=== PATIENT | male | born 1935 | race Caucasian/White ===

== ENCOUNTER 2018-08-07 13:59 | Inpatient (IN) | payer MEDICARE ==
[2018-08-07] MEDS ORDERED: Morphine 4 MG/ML VIAL ONE (14:52)
[2018-08-07] MEDS ORDERED: Ondansetron PF 4 MG/2 ML Vial ONE (14:53)
[2018-08-07 15:04] LABS: #Basophils 0.1 thou/uL (0.0-0.2); #Eosinphils 0.1 thou/uL (0.0-0.7); #Monocytes 0.4 thou/uL (0.11-0.59); #Neutrophils 4.9 thou/uL (1.40-6.50); %Basophils 1.1 % (0.0-1.0); %Eosinophils 2.1 % (0.0-10.0); %Lymphocytes 15.7 % (21.0-51.0); %Monocytes 5.5 % (0.0-10.0); %Neutrophils 75.6 % (42.0-75.0); Hemoglobin 15.8 g/dL (14.0-18.0); Mean Corpuscular HGB CONC 32.2 g/dL (32.0-36.0); Mean Corpuscular Hemoglobin 33.3 pg (27.0-31.0); Mean Platelet Volume 8.1 fL (7.4-10.4); Platelet Count 153 thou/uL (130-400); RBC Distribution Width 12.6 % (11.5-14.5); Red Blood Cell (RBC) Count 4.74 mill/uL (4.70-6.10); White Blood Cell (WBC) Count 6.4 thou/uL (4.8-10.8)
--- NOTE | 2018-08-07 15:07 | RAD ---
AP VIEW PELVIS: Date: 08/07/18 INDICATION: History of fall. COMPARISON: None. FINDINGS: There is a comminuted, mildly angulated right intertrochanteric hip fracture. There is diffuse osteop enia. No additional fracture is evident. IMPRESSION: Comminuted right intertrochanteric hip fracture. POS: [facility]
--- NOTE | 2018-08-07 15:08 | RAD ---
RIGHT HIP 2 VIEWS: Date: 08/07/18 INDICATION: History of fall with right hip pain. COMPARISON: None. FINDINGS: There is a comminuted, mildly displaced right hip intertrochanteric fracture. No additional fracture is grossly evident. IMPRESSION: Right hip intertrochanteric fracture. POS: [facility]
[2018-08-07 15:10] LABS: INR-International Normal Ratio 1.2; PTT 31.8 SEC (22.9-36.1); Prothrombin Time 14.9 SEC (12.0-14.7)
[2018-08-07 15:35] LABS: ALT (SGPT) 19 U/L (8-55); AST (SGOT) 22 U/L (5-34); Albumin 3.7 g/dL (3.4-4.8); Alkaline Phosphatase 86 U/L (40-150); Anion Gap 13 mmol/L (10-20); BUN (Urea Nitrogen) 21 mg/dL (8.4-25.7); Bilirubin, Total 0.9 mg/dL (0.2-1.2); CK (CPK) 106 U/L (30-200); Calc. Creatinine Clearance 0 mL/min (70-130); Calcium 9.3 mg/dL (7.8-10.44); Carbon Dioxide 27 mmol/L (23-31); Chloride 106 mmol/L (98-107); Estimated GFR-MDRD 55; Globulin 2.6 g/dL (2.4-3.5); Glucose 220 mg/dL (83-110); Lipase 11 U/L (8-78); Potassium 4.7 mmol/L (3.5-5.1); Protein, Total 6.3 g/dL (5.8-8.1); Sodium 141 mmol/L (136-145)
[2018-08-07] MEDS ORDERED: Dextrose 5% in Water 1,000 ML IV PRN (15:45)
[2018-08-07] MEDS ORDERED: hydrALAZINE 20 MG/ML VIAL SLOW IVP PRN (15:45)
[2018-08-07] MEDS ORDERED: Ondansetron ODT 4 MG TAB PO PRN (15:45)
[2018-08-07] MEDS ORDERED: Ondansetron PF 4 MG/2 ML Vial IVP PRN (15:45)
[2018-08-07] MEDS ORDERED: Dextrose 50% Abboject 50 ML SYRINGE SLOW IVP PRN (15:45)
--- NOTE | 2018-08-07 15:57 | RAD ---
CHEST 1 VIEW PORTABLE: Date: 08/07/18 HISTORY: Preoperative evaluation. COMPARISON: 06/29/16. FINDINGS: Minimal stable opacity changes overlying the right cardiophrenic region when compared to prior exam. No confluent pneumonia, overt edema, pleural effusion, or other acute process. IMPRESSION: No acute intrathoracic disease. POS: [facility]
--- NOTE | 2018-08-07 16:34 | RAD ---
3 VIEWS RIGHT WRIST: Date: 08/07/18 CLINICAL HISTORY: Pain. 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 Osseou s demineralization is present. Chondrocalcinosis and vascular calcification present. There is soft ti ssue prominence. IMPRESSION: Degenerative changes and soft tissue prominence of the right wrist. A discrete fracture is not visual ized. If there are persistent symptoms subsequent to conservative management, short-term follow-up in 7-10 days would be indicated to exclude an occult injury. POS: [facility]
[2018-08-07] MEDS: traMADol HCl 50 MG TAB PO SCH ×2 (17:21→21:16)
[2018-08-07] MEDS: Acetaminophen 500 MG TAB PO SCH ×2 (17:21→21:17)
[2018-08-07 18:39] VITALS: BMI 27.0
[2018-08-07] MEDS: Senokot S 8.6-50 MG TAB PO SCH (20:37)
[2018-08-07] MEDS: Famotidine 20 MG TAB PO SCH (20:37)
[2018-08-07] MEDS: Gabapentin 300 MG CAP PO SCH (20:37)
[2018-08-07] MEDS: Insulin Regular 300 UNITS/3 ML VIAL SC PRN (21:25)
--- NOTE | 2018-08-07 22:36 | CON ---
DATE OF CONSULTATION: CHIEF COMPLAINT: Right hip pain. HISTORY OF PRESENT ILLNESS: Mr. Mtz is an 83-year-old male who was out shopping for a car today. He lost his balance and fell in the car lot. He was unable to ambulate. He had immediate pain. He was taken to the emergency department by EMS. He was found to have a right subtrochanteric femur fracture. Orthopedics was consulted for this injury. The patient has been in good health recently. He is a diabetic with an insulin pump. Otherwise, he has had no active medical problems recently, he reports. He ambulates with no assistive device. He helps care for his who has a knee surgery planned in the next month. PAST SURGICAL HISTORY: Previous cardiac catheterization. PAST MEDICAL HISTORY: Diabetes, hyperlipidemia, and hypertension. SOCIAL HISTORY: The patient denies tobacco, alcohol, or drug use. FAMILY MEDICAL HISTORY: Alzheimer's and previous cancer. REVIEW OF SYSTEMS: Positive for right thigh pain. Otherwise, negative 10-point review of systems. PHYSICAL EXAMINATION: VITAL SIGNS: Stable. The patient is normotensive, 98% on room air, respiratory rate of 16. GENERAL: He is lying supine. He is alert and oriented, no apparent distress. RESPIRATORY: Breathing comfortably. ABDOMEN: Soft, nontender, nondistended. MUSCULOSKELETAL: The patient's right lower extremity has external rotation. He is able to flex and extend the foot and ankle. He has palpable dorsalis pedis pulses. Sensation is intact distally. No laceration. Upper extremities are significant for a small effusion of the wrist and a laceration of the right elbow. IMAGES: X-rays of the right hip demonstrate a subtrochanteric femur fracture with varus alignment and displacement. IMPRESSION: Right subtrochanteric femur fracture in an elderly male. PLAN: At this point, the patient will require surgical intervention. I will plan for intramedullary nail placement of the right femur to restore alignment, promote healing, and promote early mobilization. He is not currently n.p.o., so we will plan for this tomorrow morning. He is aware of risks and benefits and wants to proceed. He will have preoperative antibiotics and appropriate DVT prophylaxis. Job ID: [id number]
--- NOTE | 2018-08-07 23:18 | HP ---
CONSULTS: Orthopedic surgery, Dr. Schmidt. HISTORY OF PRESENT ILLNESS: This is an 83-year-old gentleman, who was at a car dealership getting his vehicle inspected when he tripped and fell, landing on his right hip. The patient denies any loss of consciousness. The patient denies any chest pain, shortness of breath, or dizziness before falling. The patient also denies hitting his head. Reports that his main impact was his right wrist and hip. The patient does have an abrasion to the right wrist with full range of motion and reports mild pain. No obvious deformity noted. The patient does have abrasion to the right knee. Denies any pain. The patient reports pain to right hip area. The patient last ate pretzels at 1:30 this afternoon. PAST MEDICAL HISTORY: Neuropathy, insulin-dependent diabetes, hyperlipidemia, hypertension, atrial fibrillation. PAST SURGICAL HISTORY: Patient denies. SOCIAL HISTORY: Patient and his live at [facility], the patient takes care of his . Denies any drug use. Denies any alcohol use. Denies any smoking history. ALLERGIES: PENICILLIN. CURRENT MEDICATIONS: 1. Gabapentin. 2. Eliquis for atrial fibrillation. 3. Insulin pump. 4. Humalog. REVIEW OF SYSTEMS: A 10-point review of systems is negative unless otherwise stated in the above HPI. PHYSICAL EXAMINATION: VITAL SIGNS: Blood pressure 154/91, pulse 54, respirations 18, temperature 98.3 , SpO2 99% on room air. GENERAL: The patient is awake and alert, lying supine in bed. The patient is hard of hearing, and states that his hearing aid is currently not functioning. The patient with mild anxiety due to the fact that he is the sole care provider for his and he does not have anyone else who can take care of her. HEENT: Normocephalic and atraumatic. Pupils are equal, round, and reactive. RESPIRATIONS: Bilateral breath sounds clear to auscultation. Respirations even and unlabored. No respiratory distress. HEART: Regular rate and rhythm, slightly bradycardic. No murmurs noted. No pedal edema. ABDOMEN: Soft, nontender, and nondistended. The patient with insulin pump in place. EXTREMITIES: Neurovascularly intact x4. Distal pulses 2+ x4. The patient with right lower extremity external rotation and shortening. The patient with abrasion to right knee. The patient also with abrasion to right elbow and right wrist. No obvious deformity. NEUROLOGIC: The patient is awake, alert, and oriented x4. GCS is 15. LABORATORY DATA: WBC 6.4, RBC 4.74, hemoglobin 15.8, hematocrit 49.0, platelets 153. PT 14.9, INR 1.2, PTT 31.8. Sodium 141, potassium 4.7, chloride 106, carbon dioxide 27, anion gap 13, BUN 21, creatinine 1.25, estimated GFR 55, glucose 220 , calcium 9.3. AST 22, ALT 19, alkaline phos 86. CK 106. BNP 334.7. DIAGNOSTICS: Right hip x-ray. Impression: Right hip intertrochanteric fracture. Pelvis x-ray, comminuted right intertrochanteric hip fracture. Chest x-ray, good lung margins, no acute intrathoracic process. Right wrist x-ray, no obvious fracture. IMPRESSION: 1. Status post mechanical fall. 2. Right hip intertrochanteric fracture. 3. Abrasions. 4. History of insulin-dependent diabetes. 5. History of hypertension. 6. History of atrial fibrillation. 7. History of neuropathy. PLAN: We will admit the patient to ortho floor. Orthopedics will take the patient to the OR tomorrow morning. We will discontinue the patient's insulin pump and place on a sliding scale. We will control patient's pain regimen. We will hold patient's Eliquis. We will place the patient n.p.o. after midnight. The patient was seen and evaluated with Dr. Gonzalez. Job ID: [id number] MTDD
[2018-08-08] MEDS: Sodium Chloride 0.9% 1,000 ML IV SCH ×2 (00:18→15:42)
[2018-08-08] MEDS: Acetaminophen 500 MG TAB PO SCH ×4 (03:54→22:19)
[2018-08-08] MEDS: traMADol HCl 50 MG TAB PO SCH ×4 (03:55→17:14)
[2018-08-08 05:30] LABS: #Lymphocytes 1.1 thou/uL (1.20-3.40); #Monocytes 0.7 thou/uL (0.11-0.59); #Neutrophils 6.4 thou/uL (1.40-6.50); %Basophils 0.2 % (0.0-1.0); %Eosinophils 0.6 % (0.0-10.0); %Lymphocytes 13.4 % (21.0-51.0); %Monocytes 8.3 % (0.0-10.0); %Neutrophils 77.5 % (42.0-75.0); Hemoglobin 13.9 g/dL (14.0-18.0); Mean Corpuscular HGB CONC 32.8 g/dL (32.0-36.0); Mean Corpuscular Hemoglobin 33.9 pg (27.0-31.0); Platelet Count 152 thou/uL (130-400); RBC Distribution Width 12.3 % (11.5-14.5); Red Blood Cell (RBC) Count 4.09 mill/uL (4.70-6.10); White Blood Cell (WBC) Count 8.3 thou/uL (4.8-10.8)
[2018-08-08 05:49] LABS: Phosphorus 3.3 mg/dL (2.3-4.7)
[2018-08-08 05:52] LABS: ALT (SGPT) 14 U/L (8-55); AST (SGOT) 16 U/L (5-34); Albumin 3.4 g/dL (3.4-4.8); Alkaline Phosphatase 82 U/L (40-150); Anion Gap 10 mmol/L (10-20); BUN (Urea Nitrogen) 20 mg/dL (8.4-25.7); Bilirubin, Total 1.6 mg/dL (0.2-1.2); Calc. Creatinine Clearance 66 mL/min (70-130); Calcium 9.1 mg/dL (7.8-10.44); Carbon Dioxide 29 mmol/L (23-31); Chloride 106 mmol/L (98-107); Estimated GFR-MDRD 66; Globulin 2.2 g/dL (2.4-3.5); Glucose 213 mg/dL (83-110); Magnesium 1.7 mg/dL (1.6-2.6); Potassium 4.8 mmol/L (3.5-5.1); Protein, Total 5.6 g/dL (5.8-8.1); Sodium 140 mmol/L (136-145)
[2018-08-08] MEDS ORDERED: Magnesium 2 GM/50 ML 2 GM in Premix Bag 1 BAG IVPB SCH (07:00)
[2018-08-08] MEDS: Famotidine 20 MG TAB PO SCH ×2 (08:20→22:19)
[2018-08-08] MEDS: Gabapentin 300 MG CAP PO SCH ×2 (08:21→22:19)
[2018-08-08] MEDS ORDERED: Prevnar 13-Val Conj/PF 0.5 ML SYRINGE IM ONE (09:00)
[2018-08-08] MEDS ORDERED: Loteprednol Etabonate 0.5% Ophth Suspension 5 ml Bottle EA EYE PRN (09:59)
[2018-08-08] MEDS ORDERED: Artificial Tear Sol 15 ML BOT EA EYE PRN (09:59)
--- NOTE | 2018-08-08 10:21 | PRG ---
DATE OF SERVICE: 08/08/2018 SUBJECTIVE: The patient was seen this morning lying in bed with no signs of acute distress. He reported he slept well overnight and is n.p.o. for the OR this morning with Dr. Schmidt, Orthopedic Surgery. He did complain of some dryness in his mouth and would like to drink water, but otherwise denies nausea, vomiting, and diarrhea. Reports pain is localized to his right lower extremity at the site of the fracture and pain only gets worse whenever he moves. He has neuropathy at baseline, but reports numbness and tingling is not increased since his accident. OBJECTIVE: VITAL SIGNS: Temperature 98.1, pulse 66, respirations 16, oxygen saturation 98% on room air, blood pressure 119/73. GENERAL: Well-appearing male, sitting up, lying in bed with no signs of acute distress. CARDIAC: Regular rate and rhythm. No murmurs, gallops, or rubs. PULMONARY: Equal chest rise and fall. Clear breath sounds bilaterally. No signs of acute distress. GI: Abdomen is soft, nontender, nondistended. EXTREMITIES: 2+ pulses in all extremities. No significant swelling noted. Gross motor and sensation are intact. LABORATORY FINDINGS: White count 8.3, hemoglobin 13.9, hematocrit 42.3, platelets 152. Sodium 140, potassium 4.8, chloride 106, carbon dioxide 29, BUN 20, creatinine 1.07, glucose 213, phos 3.3, magnesium 1.7. DIAGNOSTIC FINDINGS: There are no new diagnostic findings to report. ASSESSMENT: 1. Status post mechanical fall from standing. 2. Right intertrochanteric femur fracture. 3. History of hypertension, hyperlipidemia, insulin-dependent diabetes, atrial fibrillation, and peripheral neuropathy. PLAN: The patient is to go to the OR today with Dr. Schmidt of Orthopedic Surgery. He will be n.p.o. until postop, where he will receive a diabetic diet. We will continue normal saline at 100 an hour until he is taking an adequate diet, Pepcid for stress, also we will hold DVT prophylaxis until postop. We will continue to hold home medications except for home gabapentin and we will reassess tomorrow to start home medications as clinically indicated. We will continue current pain regimen. PT and OT to see the patient postoperatively. The patient will likely need placement in acute rehab and he is amendable to that. Job ID: [id number]
[2018-08-08] MEDS ORDERED: Clindamycin/D5W 900 MG in Premix Bag 1 BAG IVPB SCH (10:30)
[2018-08-08] MEDS ORDERED: Clindamycin/D5W 900 mg/50 ml Premix Bag ONE (10:51)
[2018-08-08] MEDS ORDERED: Insulin Regular 300 UNITS/3 ML VIAL ONE (11:07)
[2018-08-08] MEDS ORDERED: Dexamethasone 20 MG/5 ML VIAL ONE (12:12)
[2018-08-08] MEDS ORDERED: ePHEDrine 50 MG/ML VIAL ONE (12:12)
[2018-08-08] MEDS ORDERED: PROPOFOL 200 MG/20 ML VIAL ONE (12:12)
[2018-08-08] MEDS ORDERED: Ondansetron PF 4 MG/2 ML Vial ONE (12:12)
[2018-08-08] MEDS ORDERED: PHENYLEPHRINE-NS 100 MCG/ML 10 ML SYRINGE ONE (12:12)
[2018-08-08] MEDS ORDERED: Fentanyl 100 MCG/2 ML VIAL ONE (12:43)
[2018-08-08] MEDS: Polyethylene Glycol 3350 17 GM Packet PO SCH (13:21)
[2018-08-08] MEDS: Senokot S 8.6-50 MG TAB PO SCH ×2 (15:42→22:19)
[2018-08-08] MEDS: Insulin Regular 300 UNITS/3 ML VIAL SC PRN ×2 (17:15→22:20)
[2018-08-08] MEDS ORDERED: PATIENT'S OWN INSULIN PUMP FS PRN (17:55)
[2018-08-08] MEDS ORDERED: HumaLOG 300 UNITS/3 ML VIAL SC SCH (18:00)
[2018-08-08] MEDS ORDERED: traMADol HCl 50 MG TAB PO PRN (19:31)
[2018-08-08] MEDS ORDERED: Dextrose 5% in Water 1,000 ML IV PRN (19:31)
[2018-08-08] MEDS ORDERED: Dextrose 50% Abboject 50 ML SYRINGE IVP PRN (19:31)
[2018-08-09] MEDS: Acetaminophen 500 MG TAB PO SCH ×4 (04:22→21:03)
[2018-08-09 04:57] LABS: #Lymphocytes 0.6 thou/uL (1.20-3.40); #Monocytes 0.9 thou/uL (0.11-0.59); #Neutrophils 10.9 thou/uL (1.40-6.50); %Lymphocytes 4.8 % (21.0-51.0); %Monocytes 7.3 % (0.0-10.0); %Neutrophils 87.9 % (42.0-75.0); Hemoglobin 11.3 g/dL (14.0-18.0); Mean Corpuscular Hemoglobin 34.3 pg (27.0-31.0); Mean Platelet Volume 8.4 fL (7.4-10.4); Platelet Count 152 thou/uL (130-400); RBC Distribution Width 12.3 % (11.5-14.5); White Blood Cell (WBC) Count 12.4 thou/uL (4.8-10.8)
[2018-08-09 05:20] LABS: Anion Gap 14 mmol/L (10-20); BUN (Urea Nitrogen) 29 mg/dL (8.4-25.7); Calc. Creatinine Clearance 56 mL/min (70-130); Calcium 8.7 mg/dL (7.8-10.44); Carbon Dioxide 21 mmol/L (23-31); Chloride 106 mmol/L (98-107); Estimated GFR-MDRD 54; Glucose 315 mg/dL (83-110); Magnesium 1.9 mg/dL (1.6-2.6); Phosphorus 2.5 mg/dL (2.3-4.7); Potassium 5.1 mmol/L (3.5-5.1); Sodium 136 mmol/L (136-145)
[2018-08-09] MEDS: Insulin Regular 300 UNITS/3 ML VIAL SC PRN ×4 (05:29→21:37)
[2018-08-09] MEDS ORDERED: traMADol HCl 50 MG TAB PO PRN (07:42)
[2018-08-09] MEDS: Famotidine 20 MG TAB PO SCH ×2 (09:05→20:55)
[2018-08-09] MEDS: Senokot S 8.6-50 MG TAB PO SCH ×2 (09:05→20:55)
[2018-08-09] MEDS: Gabapentin 300 MG CAP PO SCH ×2 (09:05→20:56)
[2018-08-09] MEDS: Polyethylene Glycol 3350 17 GM Packet PO SCH (09:06)
--- NOTE | 2018-08-09 10:08 | PRG ---
DATE OF SERVICE: 08/09/2018 SUBJECTIVE: The patient was seen this morning lying in bed. He is postoperative day one after fixation of his right intertrochanteric femur fracture by Dr. Schmidt of Orthopedic Surgery. The patient reported he was only able to sleep off and on and was asking questions about his insulin pump. Nursing did report some mild confusion, but the patient is oriented and redirectable easily and delirium is likely secondary to trauma and lack of sleep. He denies nausea, vomiting, or diarrhea. Had dinner last night, but has not had breakfast yet. He is voiding without any difficulty. OBJECTIVE: VITAL SIGNS: Temperature 97.7, pulse 76, respirations 16, oxygen saturation 96% on room air, blood pressure 108/64. GENERAL: Well-appearing elderly male, lying in bed, with no signs of acute distress. CARDIAC: Regular rate and rhythm. No murmurs, gallops, or rubs. PULMONARY: Equal chest rise and fall. Clear breath sounds bilaterally. No signs of acute distress. GI: Abdomen is soft, nontender, nondistended. EXTREMITIES: 2+ pulses in all extremities. No significant swelling noted. Gross motor and sensation is intact. Surgical site on right lower extremity is clean, dry, and intact with no signs of infection. LABORATORY FINDINGS: White count 12.4, hemoglobin 11.3, hematocrit 33.3, platelets 152. Sodium 136, potassium 5.1, chloride 106, carbon dioxide 21, BUN 29, creatinine 1.27, glucose 315, phos 2.5, magnesium 1.9. DIAGNOSTIC FINDINGS: There are no new diagnostic findings to report. ASSESSMENT: 1. Status post mechanical fall from standing. 2. Right intertrochanteric femur fracture. 3. History of hypertension, hyperlipidemia, insulin-dependent diabetes, atrial fibrillation, and peripheral neuropathy. PLAN: The patient is postoperative day 1 after fixation of his right intertrochanteric femur fracture. He will work with Physical and Occupational therapy today. The patient then requested to his insulin pump yesterday, but it was not working properly and such he was switched back to insulin sliding scale. His blood glucose is above 200 consistently and so we will increase a sliding scale to moderate intensity. We will also restart his home simvastatin today and will continue to hold lisinopril because his blood pressure is not elevated and he has a slight bump in his creatinine, however, it is not causing an acute kidney injury. We will also start melatonin this evening for better sleep. We will replace phosphorus as well. We will encourage the patient to be up throughout the day and sleeping at night to help resolve his very mild delirium. Due to his slight confusion and fall on Eliquis, we will perform a CT brain this morning to rule out a TBI. He did not receive a CT brain on arrival as he reported he did not have LOC and his mentation was at baseline. Will follow up CT results and contact NSGY if indicated. The patient was discussed with Dr. Gonzalez. Job ID: [id number] CHAZ
--- NOTE | 2018-08-09 12:03 | CT ---
CT BRAIN: DATE: 08/09/2018. PROVIDED CLINICAL HISTORY: Confusion status post fall. COMPARISON: 06/29/2016. FINDINGS: The ventricular system appears normal in size and morphology. There is no evidence for intracranial hemorrhage or mass effect. The extracranial soft tissues and osseous structures appear unremarkable. IMPRESSION: No evidence for intracranial hemorrhage or mass effect. POS: [facility]
--- NOTE | 2018-08-09 15:59 | EKG ---
Test Reason : Blood Pressure : / mmHG Vent. Rate : 045 BPM Atrial Rate : 096 BPM P-R Int : 000 ms QRS Dur : 114 ms QT Int : 542 ms P-R-T Axes : 000 -23 194 degrees QTc Int : 468 ms Sinus bradycardia Right bundle branch block Inferior infarct , age undetermined T wave abnormality, consider lateral ischemia Abnormal ECG Confirmed by ANICETO JACKSON, BETTY (12), food expeditor DAVID BLANTON ([id number]) on 08/09/2018 3:59:14 PM Referred By: Confirmed By:BETTY MORELAND MD
[2018-08-09] MEDS: Atorvastatin Calcium 10 MG TAB PO SCH (20:55)
[2018-08-09] MEDS: Apixaban 5 MG TAB PO SCH (20:55)
[2018-08-09] MEDS ORDERED: Simvastatin 20 MG TAB PO SCH (21:00)
[2018-08-09] MEDS: Melatonin 3 MG TAB PO SCH (21:03)
[2018-08-10] MEDS: Acetaminophen 500 MG TAB PO SCH ×4 (05:14→21:03)
[2018-08-10 07:12] LABS: #Lymphocytes 1.1 thou/uL (1.20-3.40); #Monocytes 0.7 thou/uL (0.11-0.59); #Neutrophils 7.8 thou/uL (1.40-6.50); %Basophils 0.4 % (0.0-1.0); %Eosinophils 0.2 % (0.0-10.0); %Lymphocytes 10.8 % (21.0-51.0); %Monocytes 7.7 % (0.0-10.0); Hemoglobin 9.3 g/dL (14.0-18.0); Mean Corpuscular HGB CONC 33.6 g/dL (32.0-36.0); Mean Corpuscular Hemoglobin 34.6 pg (27.0-31.0); Mean Platelet Volume 7.7 fL (7.4-10.4); Platelet Count 131 thou/uL (130-400); RBC Distribution Width 12.5 % (11.5-14.5); Red Blood Cell (RBC) Count 2.68 mill/uL (4.70-6.10); White Blood Cell (WBC) Count 9.7 thou/uL (4.8-10.8)
[2018-08-10] MEDS: Insulin Regular 300 UNITS/3 ML VIAL SC PRN ×3 (07:13→16:47)
[2018-08-10 07:32] LABS: Anion Gap 10 mmol/L (10-20); BUN (Urea Nitrogen) 33 mg/dL (8.4-25.7); Calc. Creatinine Clearance 65 mL/min (70-130); Calcium 8.6 mg/dL (7.8-10.44); Carbon Dioxide 28 mmol/L (23-31); Chloride 105 mmol/L (98-107); Estimated GFR-MDRD 64; Glucose 184 mg/dL (83-110); Magnesium 1.9 mg/dL (1.6-2.6); Potassium 4.8 mmol/L (3.5-5.1); Sodium 138 mmol/L (136-145)
[2018-08-10] MEDS ORDERED: Magnesium 2 GM/50 ML 2 GM in Premix Bag 1 BAG IVPB SCH (09:00)
[2018-08-10] MEDS: Polyethylene Glycol 3350 17 GM Packet PO SCH (09:24)
[2018-08-10] MEDS: Gabapentin 300 MG CAP PO SCH ×2 (09:24→20:34)
[2018-08-10] MEDS: Senokot S 8.6-50 MG TAB PO SCH ×2 (09:24→20:31)
[2018-08-10] MEDS: Cyclobenzaprine 10 MG TAB PO PRN (09:24)
[2018-08-10] MEDS: Famotidine 20 MG TAB PO SCH ×2 (09:24→20:32)
[2018-08-10] MEDS: Apixaban 5 MG TAB PO SCH ×2 (09:25→20:35)
--- NOTE | 2018-08-10 09:25 | PRG ---
DATE OF SERVICE: 08/10/2018 SUBJECTIVE: The patient was seen this morning lying in bed. Reported sleeping well overnight and only waking up for interruptions for nursing care. Stated that he does not have a very much of an appetite right now, but that he was amenable to drinking Ensure shakes. He did not work with Physical Therapy yesterday and reported that he felt unsteady on his feet, but was able to participate. He denies nausea, vomiting, or diarrhea at this time. Mentation appears to be back at baseline. There were some concerns yesterday for a decrease in his mentation due to some very slight confusion; however, that seems to have resolved today. No acute events overnight. OBJECTIVE: VITAL SIGNS: Temperature 97.6, pulse 88, respirations 18, oxygen saturation 95% on room air, and blood pressure 111/62. GENERAL: A well-appearing elderly male, lying in bed, with no signs of acute distress. CARDIAC: Regular rate and rhythm. No murmurs, gallops, or rubs. PULMONARY: Equal chest rise and fall. Clear breath sounds bilaterally. No signs of acute distress. GI: Abdomen is soft, nontender, and nondistended. EXTREMITIES: 2+ pulses in all extremities. No significant swelling noted. Gross motor and sensation are intact. Surgical site on right lower extremity is clean, dry, and intact with no signs of infection. LABORATORY DATA: LABORATORY FINDINGS: White count 9.7, hemoglobin 9.3, hematocrit 27.6, and platelets 131. Sodium 138, potassium 4.8, chloride 105, carbon dioxide 28, BUN 33, creatinine 1.10, glucose 184, phos 3.0, and magnesium 1.9. DIAGNOSTIC FINDINGS: CT of the brain completed on August 09 demonstrates no evidence of intracranial hemorrhage or mass effect. ASSESSMENT: 1. Status post mechanical fall from standing. 2. Right intertrochanteric femur fracture. 3. Acute traumatic pain. 4. History of hypertension, hyperlipidemia, insulin-dependent diabetes, atrial fibrillation, peripheral neuropathy, hypomagnesemia, and hypophosphatemia. PLAN: We will replace magnesium and phosphorus today. The patient is also complaining of tightness near his fracture site. We will start Flexeril p.r.n. today. Glucose better controlled today; however, not reaching our goal, so we will increase insulin to an aggressive sliding scale and continue to monitor. The patient to continue to receive physical and occupational therapy. We will continue to hold home lisinopril as his blood pressure goals are being met. Eliquis was started yesterday after a head CT demonstrated no traumatic brain injury or bleeding. The patient is ready for discharge at this time and will eventually be going to rehab facility when there is a bed available. The patient will be discussed with Dr. Gonzalez after this dictation. Job ID: [id number]
[2018-08-10] MEDS ORDERED: Sodium Phosphate 15 MMOL in Sodium Chloride 0.9% 250 ML 250 ML IVPB SCH (09:30)
[2018-08-10] MEDS: Atorvastatin Calcium 10 MG TAB PO SCH (20:32)
[2018-08-10] MEDS: Melatonin 3 MG TAB PO SCH (20:36)
[2018-08-11] MEDS: Cyclobenzaprine 10 MG TAB PO PRN (04:09)
[2018-08-11] MEDS: Acetaminophen 500 MG TAB PO SCH ×4 (04:09→21:04)
[2018-08-11] MEDS: Insulin Regular 300 UNITS/3 ML VIAL SC PRN ×3 (06:25→17:39)
[2018-08-11 07:03] LABS: #Lymphocytes 1.1 thou/uL (1.20-3.40); #Monocytes 0.8 thou/uL (0.11-0.59); #Neutrophils 7.1 thou/uL (1.40-6.50); %Basophils 0.1 % (0.0-1.0); %Eosinophils 0.2 % (0.0-10.0); %Monocytes 8.4 % (0.0-10.0); %Neutrophils 79.3 % (42.0-75.0); Hemoglobin 9.7 g/dL (14.0-18.0); Mean Corpuscular HGB CONC 33.4 g/dL (32.0-36.0); Mean Corpuscular Hemoglobin 34.4 pg (27.0-31.0); Mean Platelet Volume 8.1 fL (7.4-10.4); Platelet Count 179 thou/uL (130-400); RBC Distribution Width 12.4 % (11.5-14.5); Red Blood Cell (RBC) Count 2.81 mill/uL (4.70-6.10); White Blood Cell (WBC) Count 8.9 thou/uL (4.8-10.8)
[2018-08-11 07:12] LABS: Anion Gap 15 mmol/L (10-20); BUN (Urea Nitrogen) 31 mg/dL (8.4-25.7); Calc. Creatinine Clearance 70 mL/min (70-130); Calcium 8.6 mg/dL (7.8-10.44); Carbon Dioxide 24 mmol/L (23-31); Chloride 105 mmol/L (98-107); Estimated GFR-MDRD 69; Glucose 206 mg/dL (83-110); Magnesium 1.9 mg/dL (1.6-2.6); Phosphorus 2.6 mg/dL (2.3-4.7); Potassium 4.3 mmol/L (3.5-5.1); Sodium 140 mmol/L (136-145)
[2018-08-11] MEDS ORDERED: Magnesium 2 GM/50 ML 2 GM in Premix Bag 1 BAG IVPB SCH (08:00)
[2018-08-11] MEDS ORDERED: Sodium Phosphate 30 MMOL in Sodium Chloride 0.9% 250 ML 250 ML IVPB SCH (08:00)
[2018-08-11] MEDS: Apixaban 5 MG TAB PO SCH ×2 (08:54→20:38)
[2018-08-11] MEDS: Famotidine 20 MG TAB PO SCH ×2 (08:54→20:38)
[2018-08-11] MEDS: Lisinopril 2.5 MG TAB PO SCH (08:54)
[2018-08-11] MEDS: Gabapentin 300 MG CAP PO SCH ×2 (08:54→20:38)
[2018-08-11] MEDS: Senokot S 8.6-50 MG TAB PO SCH ×2 (08:55→20:38)
[2018-08-11] MEDS: Polyethylene Glycol 3350 17 GM Packet PO SCH (08:55)
[2018-08-11] MEDS ORDERED: PHOS-NAK 1 PKT PACK PO SCH (11:00)
--- NOTE | 2018-08-11 13:05 | PRG ---
DATE OF SERVICE: 08/11/2018 SUBJECTIVE: The patient was seen this morning lying in bed. Reported having some hallucinations. Nursing also reported the patient was agitated and had pulled out his IVs a couple of times, but he is easily redirectable and has not tried to get up out of bed. He reported that he slept okay, but it is likely considering his delirium that he is not sleeping well and is not being active enough during the daytime while in the hospital. He is tolerating a regular diet. He has Glucerna that is ordered t.i.d. and he is drinking about half each time. Denies nausea, vomiting, and diarrhea. OBJECTIVE: VITAL SIGNS: Temperature 98.4, pulse 84, respirations 16, oxygen saturation 97% on room air, blood pressure 154/73. GENERAL: Well-appearing elderly male, lying in bed with no signs of acute distress. CARDIAC: Regular rate and rhythm. No murmurs, gallops, or rubs. PULMONARY: Equal chest rise and fall. Clear breath sounds bilaterally. No signs of acute distress. GI: Abdomen is soft, nontender, nondistended. EXTREMITIES: 2+ pulses in all extremities. No significant swelling noted. Gross motor and sensation intact. Surgical site on right lower extremity is clean, dry, intact without signs of infection. NEURO: GCS is 14 to 15. Pupils equal, round, reactive to light. Gross motor intact. LABORATORY FINDINGS: White count 8.9, hemoglobin 9.7, hematocrit 29.9, platelets 179. Sodium 140, potassium 4.0, chloride 105, carbon dioxide 24, BUN 31, creatinine 1.02, glucose 206, phos 2.6, magnesium 1.9. DIAGNOSTIC FINDINGS: There are no new diagnostic findings to report. ASSESSMENT: 1. Status post mechanical fall from standing. 2. Right intertrochanteric femur fracture. 3. Acute traumatic pain. 4. Delirium. 5. History of hypertension, hyperlipidemia, insulin-dependent diabetes, atrial fibrillation, peripheral neuropathy. 6. Hypophosphatemia and hypomagnesemia. PLAN: We will discontinue tramadol and flexeril as they may be contributing to his delirium. We will start ibuprofen and continue scheduled Tylenol as well. PT/OT to get the patient up out of bed today and active, so he can sleep well overnight. The patient continues to pull out IVs and so we will give him p.o. electrolyte replacements from here on out. We will restart his home lisinopril today as he is starting to become hypertensive this morning. The patient is ready for discharge to acute rehab. Insurance is pending. The patient was seen and examined by Dr. Gonzalez and myself this morning during rounds. Job ID: [id number]
[2018-08-11] MEDS: Ibuprofen 600 MG TAB PO SCH ×2 (13:06→21:05)
[2018-08-11] MEDS: Atorvastatin Calcium 10 MG TAB PO SCH (20:38)
[2018-08-11] MEDS: Melatonin 3 MG TAB PO SCH (20:38)
[2018-08-12] MEDS: Acetaminophen 500 MG TAB PO SCH ×4 (04:16→21:00)
[2018-08-12] MEDS: Ibuprofen 600 MG TAB PO SCH ×3 (05:07→21:02)
[2018-08-12 06:11] LABS: #Eosinphils 0.1 thou/uL (0.0-0.7); #Lymphocytes 1.1 thou/uL (1.20-3.40); #Monocytes 0.7 thou/uL (0.11-0.59); #Neutrophils 6.5 thou/uL (1.40-6.50); %Eosinophils 0.7 % (0.0-10.0); %Lymphocytes 13.4 % (21.0-51.0); %Monocytes 8.1 % (0.0-10.0); %Neutrophils 77.8 % (42.0-75.0); Hemoglobin 9.9 g/dL (14.0-18.0); Mean Corpuscular HGB CONC 33.5 g/dL (32.0-36.0); Mean Corpuscular Hemoglobin 34.2 pg (27.0-31.0); Mean Platelet Volume 7.7 fL (7.4-10.4); Platelet Count 202 thou/uL (130-400); RBC Distribution Width 12.6 % (11.5-14.5); Red Blood Cell (RBC) Count 2.89 mill/uL (4.70-6.10); White Blood Cell (WBC) Count 8.3 thou/uL (4.8-10.8)
[2018-08-12] MEDS: Insulin Regular 300 UNITS/3 ML VIAL SC PRN ×2 (06:18→12:25)
[2018-08-12 06:35] LABS: Anion Gap 14 mmol/L (10-20); BUN (Urea Nitrogen) 37 mg/dL (8.4-25.7); Calc. Creatinine Clearance 63 mL/min (70-130); Calcium 8.7 mg/dL (7.8-10.44); Carbon Dioxide 24 mmol/L (23-31); Chloride 104 mmol/L (98-107); Estimated GFR-MDRD 62; Glucose 186 mg/dL (83-110); Phosphorus 2.7 mg/dL (2.3-4.7); Sodium 138 mmol/L (136-145)
[2018-08-12] MEDS: Famotidine 20 MG TAB PO SCH ×2 (09:42→21:01)
[2018-08-12] MEDS: Lisinopril 2.5 MG TAB PO SCH (09:42)
[2018-08-12] MEDS: Apixaban 5 MG TAB PO SCH ×2 (09:42→21:00)
[2018-08-12] MEDS: Senokot S 8.6-50 MG TAB PO SCH ×2 (09:42→21:01)
[2018-08-12] MEDS: Polyethylene Glycol 3350 17 GM Packet PO SCH (09:43)
[2018-08-12] MEDS: Gabapentin 300 MG CAP PO SCH ×3 (09:43→21:01)
--- NOTE | 2018-08-12 12:19 | PRG ---
DATE OF SERVICE: SUBJECTIVE: The patient is currently on the surgical floor. He had no issues overnight. The patient is currently awaiting placement possibly to rehab versus a skilled facility. He is status post ground level fall and has undergone operative procedure for his right intertrochanteric femur fracture. The patient has been working with Physical and Occupational Therapy, although he is slow to progress. OBJECTIVE: VITAL SIGNS: Temperature is 98.3, heart rate is 62, blood pressure 109/66, respirations 16, oxygen saturation is 95% on room air. GENERAL: The patient is resting comfortably in bed. He is awake and appropriate. HEENT: Unremarkable. HEART: Regular rate and rhythm. ABDOMEN: Soft, flat, and nontender with active bowel sounds. LUNGS: Breath sounds are clear bilaterally. EXTREMITIES: Neurovascularly intact x4. LABORATORY FINDINGS: White blood cell count 8.3, hemoglobin 9.9, hematocrit 29.5, platelets 202. Sodium 138, potassium 4.0, chloride 104, CO2 of 24, BUN 37, creatinine 1.12, glucose 186, magnesium 2.0, phosphorus 2.7. There are no radiographs reviewed this morning. ASSESSMENT: 1. Status post fall from standing. 2. Status post open reduction and internal fixation of right intertrochanteric femur fracture. 3. Delirium. 4. History of hypertension, hyperlipidemia, insulin-dependent diabetes, atrial fibrillation, and peripheral neuropathy. PLAN: Plan will be to continue supportive care and await final placement decision. We will discontinue his daily labs at this time too. The evaluation, examination, laboratory, and radiographic findings were done with Dr. Gonzalez this morning during the rounds. Job ID: [id number]
[2018-08-12] MEDS: Melatonin 3 MG TAB PO SCH (21:00)
[2018-08-12] MEDS: Atorvastatin Calcium 10 MG TAB PO SCH (21:01)
[2018-08-13] MEDS: Acetaminophen 500 MG TAB PO SCH ×4 (04:13→21:07)
[2018-08-13] MEDS: Ibuprofen 600 MG TAB PO SCH ×3 (06:09→21:07)
[2018-08-13] MEDS: Insulin Regular 300 UNITS/3 ML VIAL SC PRN ×2 (06:38→12:35)
[2018-08-13] MEDS: Lisinopril 2.5 MG TAB PO SCH (09:03)
[2018-08-13] MEDS: Gabapentin 300 MG CAP PO SCH ×3 (09:03→21:06)
[2018-08-13] MEDS: Senokot S 8.6-50 MG TAB PO SCH ×2 (09:03→21:06)
[2018-08-13] MEDS: Apixaban 5 MG TAB PO SCH ×2 (09:03→21:06)
[2018-08-13] MEDS: Famotidine 20 MG TAB PO SCH ×2 (09:03→21:06)
[2018-08-13] MEDS: Polyethylene Glycol 3350 17 GM Packet PO SCH (09:07)
[2018-08-13 11:16] LABS: Bilirubin Small (Negative); Blood, Urine Negative (Negative); Clarity CLEAR (Clear); Glucose, Urine (Dipstick) 250 mg/dL (Negative); Leukocyte Negative (Negative); Nitrite Negative (Negative); Protein, Urine (Dipstick) Negative (Neg-Trace); Specific Gravity, Urine 1.024 (1.002-1.036)
[2018-08-13 11:19] LABS: Bacteria/HPF None Seen HPF (None Seen); Hyaline Casts/LPF 4-6 HYALINE CAST LPF (0-3 Hyaline); Pathc Cast-AUWi Flag 0.81 (0-2.49); RBC/HPF 0-3 HPF (0-3); Squamous Epithelial 0-3 HPF (0-3); WBC/HPF 0-3 HPF (0-3)
--- NOTE | 2018-08-13 11:33 | PRG ---
DATE OF SERVICE: 08/13/2018 SUBJECTIVE: The patient is currently on the surgical floor. He is doing well, though it was reported that he did have a restful night last night and was reportedly having some hallucinations. This morning, the patient is conversant, appears appropriate and interestingly was aware of him having hallucinations, believing that he was elsewhere other than the hospital and that his was with him even though he realizes that she is not here. The patient currently is calm and not impulsive. OBJECTIVE: VITAL SIGNS: Temperature is 97.9, heart rate 80, blood pressure 122/71, respirations 16, oxygen saturation is 96% on room air. GENERAL: The patient is resting comfortably in bed. He is awake and conversant. HEENT: Unremarkable. LUNGS: Breath sounds are clear bilaterally. HEART: Regular rate and rhythm. ABDOMEN: Soft, flat, nontender with active bowel sounds. EXTREMITIES: Neurovascularly intact x4. LABORATORY DATA: There are no labs or radiographs reviewed this morning. ASSESSMENT: 1. Status post fall from standing. 2. Status post open reduction and internal fixation of right intertrochanteric femur fracture. 3. Delirium. 4. History of hypertension, hyperlipidemia, insulin-dependent diabetes, atrial fibrillation, and peripheral neuropathy. PLAN: Plan will be to continue supportive care and await final placement decision. The evaluation and examination were done with Dr. Gonzalez this morning during the rounds. Job ID: [id number]
[2018-08-13] MEDS ORDERED: Zolpidem Tartrate 5 MG TAB PO PRN (11:42)
[2018-08-13] MEDS: Atorvastatin Calcium 10 MG TAB PO SCH (21:06)
[2018-08-13] MEDS: Melatonin 3 MG TAB PO SCH (21:07)
[2018-08-14] MEDS: Acetaminophen 500 MG TAB PO SCH ×4 (04:32→21:07)
[2018-08-14] MEDS: HumaLOG 300 UNITS/3 ML VIAL SC PRN ×2 (05:40→17:19)
[2018-08-14] MEDS: Ibuprofen 600 MG TAB PO SCH ×3 (05:40→21:07)
--- NOTE | 2018-08-14 09:12 | RAD ---
RIGHT FEMUR 2 VIEWS: Date: 08/08/18 HISTORY: Open reduction and internal fixation right hip. FINDINGS: Hip nail and intramedullary jyoti placed in the right femur, stabilizing a comminuted, intertrochanteri c fracture of the right hip, with improvement position and alignment. No evidence for new fracture. IMPRESSION: Placement of a hip nail stabilizing a comminuted intertrochanteric femur fracture. POS: [facility]
[2018-08-14] MEDS: Polyethylene Glycol 3350 17 GM Packet PO SCH (09:31)
[2018-08-14] MEDS: Gabapentin 300 MG CAP PO SCH ×3 (09:31→20:44)
[2018-08-14] MEDS: Lisinopril 2.5 MG TAB PO SCH (09:31)
[2018-08-14] MEDS: Senokot S 8.6-50 MG TAB PO SCH ×2 (09:33→20:44)
[2018-08-14] MEDS: Apixaban 5 MG TAB PO SCH ×2 (09:34→20:44)
[2018-08-14] MEDS: Famotidine 20 MG TAB PO SCH ×2 (09:34→20:44)
[2018-08-14] MEDS: Insulin Glargine 15 UNITS in Pre-Filled Syringe 1 EACH SC SCH (09:35)
--- NOTE | 2018-08-14 13:35 | PRG ---
DATE OF SERVICE: 08/14/2018 SUBJECTIVE: The patient remains on the surgical floor. He is status post ground level fall when he sustained a right intertrochanteric femur fracture. He has undergone open reduction and internal fixation of same. He tolerated this procedure well. Last night, he had a much better restful night. This morning, he has no complaints. He is actually speaking with his on the phone when we entered the room. He is tolerating a diet. His pain is controlled. OBJECTIVE: VITAL SIGNS: Temperature is 97.9, heart rate 78, blood pressure 135/77, respirations 20, and oxygen saturation 97% on room air. GENERAL: The patient is resting comfortably, sitting in a chair. He is awake, appropriate, and conversant. HEENT: Unremarkable. LUNGS: Clear to auscultation bilaterally. HEART: Regular rate and rhythm. ABDOMEN: Soft, flat, and nontender with active bowel sounds. EXTREMITIES: Neurovascularly intact x4. Postop dressing is clean, dry, and intact. LABORATORY DATA: There are no labs or radiographs reviewed this morning. ASSESSMENT: 1. Status post fall from standing. 2. Status post open reduction and internal fixation of right intertrochanteric femur fracture. 3. Delirium. 4. History of hypertension, hyperlipidemia, insulin-dependent diabetes, atrial fibrillation, and peripheral neuropathy. PLAN: Plan will be to continue supportive care. We will work with Case Management for placement. The evaluation and examination were done with Dr. Gonzalez this morning during rounds. Job ID: [id number]
--- NOTE | 2018-08-14 15:24 | PQF ---
CLINICAL DOCUMENTATION IMPROVEMENT CLARIFICATION FORM: ICD-10 Updated PLEASE DO AN ADDENDUM TO THE PROGRESS NOTE WITH ANY DOCUMENTATION UPDATES OR ADDITIONS AND CARRY THROUGH TO DC SUMMARY. THANK YOU. DATE: 08/14/2018 ATTN: Dr. Gonzalez Please exercise your independent, professional judgment in responding to the clarification form. Clinical indicators are provided on the bottom of this form for your review Please check appropriate box(s): [ x ] Encephalopathy: Type: [ x ] Acute [ ] Subacute [ ] Chronic Etiology: [ ] Metabolic [ ] Toxic [ ] Drug induced: [ ] Unspecified [ ] in the setting of underlying dementia [ ] Other (please specify) [ ] Other diagnosis [ ] Unable to determine In addition, please specify: Present on Admission (POA): [ ] Yes [x ] No [ ] Unable to determine For continuity of documentation, please document condition throughout progress notes and discharge summary. Thank You. CLINICAL INDICATORS - SIGNS / SYMPTOMS / LABS PN 08/11: Reported having some hallucinations. Nursing also reported the pt was agitated and had pulled out his IVs a couple of times, but he is easily redirectable and has not tried to get up out of bed Delirium Hypophosphatemia and hypomagnesemia PN 08/14: Last night, he had a much better restful night. Delirium. RISKS: H&P 08/07: 83 yr old. Hx of insulin-dependent diabetes, HTN, atrial fib. S/P mechanical fall. R hip intertrochanteric fracture. PN 08/13 (Brayan) R femur IM Nail TREATMENT: PN 08/11: We will discontinue tramadol and flexeril as they may be contributing to his delirium. will give po electrolyte replacements from here on out Thank you, Gem (This form is maintained as a part of the permanent medical record) 2014 [email or web address]. All Rights Reserved Gem Fry RN, BSN [email or web address] Office: [phone] [facility]
[2018-08-14] MEDS ORDERED: Clopidogrel Bisulfate 75 MG TAB ONE (18:20)
[2018-08-14] MEDS: Melatonin 3 MG TAB PO SCH (20:43)
[2018-08-14] MEDS: Atorvastatin Calcium 10 MG TAB PO SCH (20:44)
[2018-08-15] MEDS: Acetaminophen 500 MG TAB PO SCH ×4 (04:16→18:11)
[2018-08-15] MEDS: Ibuprofen 600 MG TAB PO SCH ×2 (05:58→14:00)
[2018-08-15] MEDS: Apixaban 5 MG TAB PO SCH (08:41)
[2018-08-15] MEDS: Lisinopril 2.5 MG TAB PO SCH (08:42)
[2018-08-15] MEDS: Gabapentin 300 MG CAP PO SCH ×2 (08:42→17:04)
[2018-08-15] MEDS: Polyethylene Glycol 3350 17 GM Packet PO SCH (08:42)
[2018-08-15] MEDS: Senokot S 8.6-50 MG TAB PO SCH (08:42)
[2018-08-15] MEDS: Famotidine 20 MG TAB PO SCH (08:42)
[2018-08-15] MEDS: Insulin Glargine 15 UNITS in Pre-Filled Syringe 1 EACH SC SCH (08:45)
[2018-08-15] MEDS: HumaLOG 300 UNITS/3 ML VIAL SC PRN (17:05)
[2018-08-15 18:35] VITALS: BP 122/78; TEMP 98
[2018-08-16] MEDS ORDERED: Ascorbic Acid 500 mg Chewable Tablet PO SCH (09:00)
--- NOTE | 2018-08-18 08:20 | DIS ---
DATE OF ADMISSION: 08/07/2018 DATE OF DISCHARGE: 08/15/2018 ADMISSION DIAGNOSIS: Mechanical fall from standing and right intertrochanteric femur fracture. DISCHARGE DIAGNOSES: Mechanical fall from standing and right intertrochanteric femur fracture and delirium. CONSULTING PHYSICIAN: Dr. Schmidt. PROCEDURES: The patient went to the OR on August 09 for fixation of his right femur fracture by Dr. Schmidt. HOSPITAL COURSE: Mr. Mtz is an 83-year-old male who presented to the emergency department after a mechanical fall while on Eliquis. The emergency department worked him up and reported he had a right intertrochanteric femur fracture. He was also anemic at that time. His Eliquis was held and he went to the OR two days later with Dr. Schmidt on the and had his right intertrochanteric femur fracture fixed. Postoperatively, the patient had some waxing and waning delirium. He was always oriented and knew that he was delirious. He was also cooperative. Otherwise, his course was uncomplicated. He was accepted for an acute rehab bed. At the time of discharge, the patient was ambulating with assistance, tolerating a diabetic diet with Glucerna t.i.d. working on physical and occupational therapy, urinating without difficulty and having bowel movements. DISCHARGE DISPOSITION: Acute rehab. DISCHARGE CONDITION: Satisfactory. PHYSICAL EXAMINATION: GENERAL: Well-appearing elderly male, sitting up at edge of bed with no signs of acute distress. PULMONARY: Equal chest rise and fall. Clear breath sounds bilaterally. No signs of acute respiratory distress. CARDIAC: Regular rate and rhythm. No murmurs, gallops, or rubs. GASTROINTESTINAL: Abdomen is soft, nontender, nondistended. EXTREMITIES: 2+ pulses in all extremities. Gross motor sensation intact in all extremities. No significant swelling noted. Right lower extremity OR dressing is clean, dry, and intact with no signs of infection. DISCHARGE INSTRUCTIONS: The patient is discharged to an acute rehab facility with weightbearing as tolerated, diabetic diet, occupational and physical therapy, incentive spirometry, walker. He will follow up with Dr. Schmidt in 14 days. DISCHARGE MEDICATIONS: Include, 1. Tylenol. 2. Simvastatin. 3. Lisinopril. 4. Gabapentin. 5. Eliquis. 6. Lotemax eyedrops. 7. Artificial Tears. 8. Humalog for his insulin pump. FOLLOWUP APPOINTMENTS: He is to follow up with Dr. Schmidt in 14 days. This is merely a summary of the patient's hospitalization. For full details, please see his medical record in its entirety. Job ID: [id number]
--- NOTE | 2018-08-18 09:13 | OP ---
DATE OF PROCEDURE: 08/08/2018 OPERATION PERFORMED: Right femur intramedullary nail. PREOPERATIVE DIAGNOSIS: Right femur intertrochanteric femur fracture. POSTOPERATIVE DIAGNOSIS: Right femur intertrochanteric femur fracture. COMPLICATIONS: None. ESTIMATED BLOOD LOSS: Minimal. IMPLANT: Synthes long femoral nail with helical blade was utilized. ANESTHESIA: General. INDICATIONS: Mr. Mtz is an 83-year-old male who fell while shopping for a car. He fractured the right proximal femur with intertrochanteric fracture and subtrochanteric extension. He has been indicated for intramedullary nail fixation of the femur to restore anatomic alignment and promote healing and promote early mobilization. Risks have been reviewed in detail. He has elected to proceed with the operation. DESCRIPTION OF PROCEDURE: Mr. Mtz was identified in the preoperative holding area. His correct extremity was marked. He was carried to the operating room. He was positioned supine. General anesthesia was induced. A multidisciplinary time-out was performed. The right lower extremity was prepped and draped in sterile fashion. We began the procedure with intraoperative reduction of the fracture using longitudinal traction and rotation. At this point, we made an incision proximal in the greater trochanter. We dissected down to the tip of the trochanter. A guidewire was inserted. We then proceeded to over-reamed the guidewire. We then placed our femoral nail from proximal to distal taken care to guide this on intraoperative x-ray. At this point, we centered the nail and our guidewire for a helical blade in the femoral head. This was placed after drilling. We used intraoperative x-ray to guide this. Finally, we placed a distal Crosslock screw using perfect havasupai technique. We thoroughly irrigated all wounds. We took final x-ray images. We closed in layers appropriately and a sterile dressing was placed. The patient was taken to the recovery room in good condition without complication. Job ID: [id number]
== END 2018-08-15 19:01 | DRG 481 ==
LOC: ERS 13:59 → SURG B 15:21
PROVIDERS: ADMIT Surgery; ATTEND Surgery
PROC: 0QS606Z Reposition Right Upper Femur with Intramedullary Internal Fixation Device, Open Approach (ICD-10-PCS; principal; 2018-08-08)
DX: S72.144A Nondisplaced intertrochanteric fracture of right femur, initial encounter for closed fracture (principal); R44.3 Hallucinations, unspecified; G93.40 Encephalopathy, unspecified; E11.65 Type 2 diabetes mellitus with hyperglycemia; E78.5 Hyperlipidemia, unspecified; I48.91 Unspecified atrial fibrillation; I10 Essential (primary) hypertension; F41.9 Anxiety disorder, unspecified; E83.42 Hypomagnesemia; E83.39 Other disorders of phosphorus metabolism; Z79.01 Long term (current) use of anticoagulants; Z79.4 Long term (current) use of insulin; Z79.899 Other long term (current) drug therapy; Z88.0 Allergy status to penicillin; W01.0XXA Fall on same level from slipping, tripping and stumbling without subsequent striking against object, initial encounter; E11.42 Type 2 diabetes mellitus with diabetic polyneuropathy; Y92.481 Parking lot as the place of occurrence of the external cause
CPT/HCPCS: 36415; 36416; 70450; 71045; 72170; 76000; 80048; 80053; 81001; 82550; 83690; 83735; 83880; 84100; 85025; 85610; 85730; 86850; 86900; 86901; 87086; 93005; 96361; 96374; 96375; C1713; C1769; G0390; J1100; J1815; J1825; J2270; J2405; J2704; J3010; J3475; J3490; J7050